=== PATIENT | female | born 1975 | race Native Hawaiian/Other Pacific Islander ===

== ENCOUNTER 2017-03-17 10:02 | Outpatient (CLI) | payer OTHER | END 2017-03-17 10:03 | disposition home or self-care (01) | LOC: LABHHL 10:02 | PROVIDERS: ATTEND Surgery | DX: D24.1 Benign neoplasm of right breast (principal); N60.91 Unspecified benign mammary dysplasia of right breast | CPT/HCPCS: 88305 ==